=== PATIENT | female | born 1995 | race American Indian/Alaskan Native ===

== ENCOUNTER 2019-05-15 05:58 | Emergency (ER) | payer BC ==
[2019-05-15] MEDS ORDERED: MORPHINE 4 MG/1 ML INJ IV ONE ×2 (07:54→12:18)
[2019-05-15] MEDS ORDERED: ONDANSETRON 4 MG ODT TAB PO ONE (07:54)
[2019-05-15] MEDS ORDERED: SODIUM CHLORIDE 0.9% 1000 ML 1,000 ML IV ONE (08:00)
--- NOTE | 2019-05-15 08:01 | Emergency Department Report ---
ED Abdominal Pain HPI - General Chief Complaint: Urogenital-Female Stated Complaint: ABD PAIN,PAINFUL URINATION,HEMATURIA Time Seen by Provider: 05/15/19 07:27 Source: patient, EMS Mode of arrival: Stretcher Limitations: No Limitations - History of Present Illness Initial Comments: 23-year-old -[place] female patient without significant past medical history complains of lower abdominal pain yesterday. She rates her pain as 10/10 in severity and describes it as stabbing. She denies any dysuria or urinary frequency, however she admits to pressure with urination in her lower abdomen in a match area. Patient states her cycle ended 2 days ago. She denies any history of abdominal surgeries, flank pain, nausea/vomiting/diarrhea, hematochezia/melena. Pt states the pain started in her mid abdomen and has now moved to her lower abdomen and is worse on the right. She denies any fever/chills/sweats MD Complaint: abdominal pain -: Sudden Location: suprapubic Radiation: none - Related Data Previous Rx's Medication Instructions Recorded Last Taken Type Ibuprofen [Motrin] 800 mg PO Q8HR PRN #30 tablet 05/15/19 Unknown Rx Nitrofurantoin [place]/M-Cryst 100 mg PO Q12HR #14 capsule 05/15/19 Unknown Rx [Macrobid CAP] metroNIDAZOLE [Flagyl TAB] 500 mg PO Q12HR 7 Days #14 tab 05/15/19 Unknown Rx Allergies Allergy/AdvReac Type Severity Reaction Status Date / Time shellfish Allergy Itching Uncoded 05/15/19 06:16 ED Review of Systems ROS: Stated complaint: ABD PAIN,PAINFUL URINATION,HEMATURIA Other details as noted in HPI ED Past Medical Hx - Past Medical History Previous Medical History?: No - Surgical History Past Surgical History?: No - Social History Smoking Status: Never Smoker Substance Use Type: None - Medications Home Medications: Home Medications Medication Instructions Recorded Confirmed Last Taken Type Ibuprofen [Motrin] 800 mg PO Q8HR PRN #30 tablet 05/15/19 Unknown Rx Nitrofurantoin [place]/M-Cryst 100 mg PO Q12HR #14 capsule 05/15/19 Unknown Rx [Macrobid CAP] metroNIDAZOLE [Flagyl TAB] 500 mg PO Q12HR 7 Days #14 tab 05/15/19 Unknown Rx ED Physical Exam - General Limitations: No Limitations General appearance: alert, in no apparent distress - Head Head exam: Present: atraumatic, normocephalic - Eye Eye exam: Present: normal appearance - ENT ENT exam: Present: mucous membranes moist - Neck Neck exam: Present: normal inspection - Respiratory Respiratory exam: Present: normal lung sounds bilaterally. Absent: respiratory distress - Cardiovascular Cardiovascular Exam: Present: normal rhythm, tachycardia. Absent: systolic murmur, diastolic murmur, rubs, gallop - GI/Abdominal GI/Abdominal exam: Present: soft, tenderness, normal bowel sounds (suprapubic, worse in RLQ ). Absent: distended, guarding, rebound, rigid - Extremities Exam Extremities exam: Present: normal inspection. Absent: pedal edema, joint swelling - Back Exam Back exam: Present: normal inspection - Neurological Exam Neurological exam: Present: alert, oriented X3 - Psychiatric Psychiatric exam: Present: normal affect, normal mood - Skin Skin exam: Present: warm, dry, intact, normal color. Absent: rash ED Course Vital Signs 05/15/19 05/15/19 05/15/19 06:05 08:23 08:34 Temperature 99.9 F H Pulse Rate 111 H 85 Respiratory 18 16 18 Rate Blood Pressure 111/76 Blood Pressure 119/72 [Left] O2 Sat by Pulse 98 100 Oximetry 05/15/19 05/15/19 05/15/19 09:58 13:30 14:16 Temperature 98.4 F Pulse Rate 93 H 98 H Respiratory 18 16 17 Rate Blood Pressure Blood Pressure 121/77 107/64 [Left] O2 Sat by Pulse 99 98 Oximetry ED Medical Decision Making - Lab Data Result diagrams: 05/15/19 08:01 05/15/19 08:01 Lab Results 05/15/19 05/15/19 05/15/19 Range/Units 08:01 08:01 08:01 WBC 16.3 H (4.5-11.0) K/mm3 RBC 4.12 (3.65-5.03) M/mm3 Hgb 11.1 (10.1-14.3) gm/dl Hct 34.5 (30.3-42.9) % MCV 84 (79-97) fl MCH 27 L (28-32) pg MCHC 32 (30-34) % RDW 14.8 (13.2-15.2) % Plt Count 214 (140-440) K/mm3 Lymph % (Auto) 7.3 L (13.4-35.0) % [place] % (Auto) 6.7 (0.0-7.3) % Eos % (Auto) 0.0 (0.0-4.3) % Baso % (Auto) 0.1 (0.0-1.8) % Lymph # 1.2 (1.2-5.4) K/mm3 [place] # 1.1 H (0.0-0.8) K/mm3 Eos # 0.0 (0.0-0.4) K/mm3 Baso # 0.0 (0.0-0.1) K/mm3 Seg Neutrophils % 85.9 H (40.0-70.0) % Seg Neutrophils # 14.0 H (1.8-7.7) K/mm3 Sodium 134 L (137-145) mmol/L Potassium 3.4 L (3.6-5.0) mmol/L Chloride 98.4 (98-107) mmol/L Carbon Dioxide 20 L (22-30) mmol/L Anion Gap 19 mmol/L BUN 8 (7-17) mg/dL Creatinine 0.6 L (0.7-1.2) mg/dL Estimated GFR > 60 ml/min BUN/Creatinine Ratio 13 % Glucose 117 H (65-100) mg/dL Lactic Acid (0.7-2.0) mmol/L Calcium 9.1 (8.4-10.2) mg/dL Total Bilirubin 1.60 H (0.1-1.2) mg/dL AST 12 (5-40) units/L ALT 8 (7-56) units/L Alkaline Phosphatase 53 (35-129) units/L Total Protein 7.9 (6.3-8.2) g/dL Albumin 3.8 L (3.9-5) g/dL Albumin/Globulin Ratio 0.9 % Lipase 25 (13-60) units/L Urine Color (Yellow) Urine Turbidity (Clear) Urine pH (5.0-7.0) Ur Specific [place] (1.003-1.030) Urine Protein (Negative) mg/dL Urine Glucose (UA) (Negative) mg/dL Urine Ketones (Negative) mg/dL Urine Blood (Negative) Urine Nitrite (Negative) Urine Bilirubin (Negative) Urine Urobilinogen (<2.0) mg/dL Ur Leukocyte Esterase (Negative) Urine WBC (Auto) (0.0-6.0) /HPF Urine RBC (Auto) (0.0-6.0) /HPF U Epithel Cells (Auto) (0-13.0) /HPF Urine Bacteria (Auto) (Negative) /HPF Urine Mucus /HPF Urine HCG, Qual (Negative) 05/15/19 05/15/19 05/15/19 Range/Units 08:06 09:12 09:56 WBC (4.5-11.0) K/mm3 RBC (3.65-5.03) M/mm3 Hgb (10.1-14.3) gm/dl Hct (30.3-42.9) % MCV (79-97) fl MCH (28-32) pg MCHC (30-34) % RDW (13.2-15.2) % Plt Count (140-440) K/mm3 Lymph % (Auto) (13.4-35.0) % [place] % (Auto) (0.0-7.3) % Eos % (Auto) (0.0-4.3) % Baso % (Auto) (0.0-1.8) % Lymph # (1.2-5.4) K/mm3 [place] # (0.0-0.8) K/mm3 Eos # (0.0-0.4) K/mm3 Baso # (0.0-0.1) K/mm3 Seg Neutrophils % (40.0-70.0) % Seg Neutrophils # (1.8-7.7) K/mm3 Sodium (137-145) mmol/L Potassium (3.6-5.0) mmol/L Chloride (98-107) mmol/L Carbon Dioxide (22-30) mmol/L Anion Gap mmol/L BUN (7-17) mg/dL Creatinine (0.7-1.2) mg/dL Estimated GFR ml/min BUN/Creatinine Ratio % Glucose (65-100) mg/dL Lactic Acid 2.70 H* 1.50 (0.7-2.0) mmol/L Calcium (8.4-10.2) mg/dL Total Bilirubin (0.1-1.2) mg/dL AST (5-40) units/L ALT (7-56) units/L Alkaline Phosphatase (35-129) units/L Total Protein (6.3-8.2) g/dL Albumin (3.9-5) g/dL Albumin/Globulin Ratio % Lipase (13-60) units/L Urine Color Yellow (Yellow) Urine Turbidity Slightly-cloudy (Clear) Urine pH 6.0 (5.0-7.0) Ur Specific [place] 1.012 (1.003-1.030) Urine Protein 30 mg/dl (Negative) mg/dL Urine Glucose (UA) Neg (Negative) mg/dL Urine Ketones Tr (Negative) mg/dL Urine Blood Lg (Negative) Urine Nitrite Neg (Negative) Urine Bilirubin Neg (Negative) Urine Urobilinogen 4.0 (<2.0) mg/dL Ur Leukocyte Esterase Tr (Negative) Urine WBC (Auto) 14.0 H (0.0-6.0) /HPF Urine RBC (Auto) 9.0 (0.0-6.0) /HPF U Epithel Cells (Auto) 7.0 (0-13.0) /HPF Urine Bacteria (Auto) 1+ (Negative) /HPF Urine Mucus 3+ /HPF Urine HCG, Qual Negative (Negative) 05/15/19 Range/Units 12:49 WBC (4.5-11.0) K/mm3 RBC (3.65-5.03) M/mm3 Hgb (10.1-14.3) gm/dl Hct (30.3-42.9) % MCV (79-97) fl MCH (28-32) pg MCHC (30-34) % RDW (13.2-15.2) % Plt Count (140-440) K/mm3 Lymph % (Auto) (13.4-35.0) % [place] % (Auto) (0.0-7.3) % Eos % (Auto) (0.0-4.3) % Baso % (Auto) (0.0-1.8) % Lymph # (1.2-5.4) K/mm3 [place] # (0.0-0.8) K/mm3 Eos # (0.0-0.4) K/mm3 Baso # (0.0-0.1) K/mm3 Seg Neutrophils % (40.0-70.0) % Seg Neutrophils # (1.8-7.7) K/mm3 Sodium (137-145) mmol/L Potassium (3.6-5.0) mmol/L Chloride (98-107) mmol/L Carbon Dioxide (22-30) mmol/L Anion Gap mmol/L BUN (7-17) mg/dL Creatinine (0.7-1.2) mg/dL Estimated GFR ml/min BUN/Creatinine Ratio % Glucose (65-100) mg/dL Lactic Acid 1.40 (0.7-2.0) mmol/L Calcium (8.4-10.2) mg/dL Total Bilirubin (0.1-1.2) mg/dL AST (5-40) units/L ALT (7-56) units/L Alkaline Phosphatase (35-129) units/L Total Protein (6.3-8.2) g/dL Albumin (3.9-5) g/dL Albumin/Globulin Ratio % Lipase (13-60) units/L Urine Color (Yellow) Urine Turbidity (Clear) Urine pH (5.0-7.0) Ur Specific [place] (1.003-1.030) Urine Protein (Negative) mg/dL Urine Glucose (UA) (Negative) mg/dL Urine Ketones (Negative) mg/dL Urine Blood (Negative) Urine Nitrite (Negative) Urine Bilirubin (Negative) Urine Urobilinogen (<2.0) mg/dL Ur Leukocyte Esterase (Negative) Urine WBC (Auto) (0.0-6.0) /HPF Urine RBC (Auto) (0.0-6.0) /HPF U Epithel Cells (Auto) (0-13.0) /HPF Urine Bacteria (Auto) (Negative) /HPF Urine Mucus /HPF Urine HCG, Qual (Negative) - Radiology Data Radiology results: report reviewed CT ABDOMEN AND PELVIS WITH CONTRAST HISTORY: Lower abdominal pain. COMPARISON: None TECHNIQUE: Routine abdominal and pelvic CT exam performed following intravenous contrast administration.. 100 cc of Omnipaque 300 was injected intravenously without incident and consent was obtained prior to the administration of the contrast. All CT scans at this location are performed using CT dose reduction for ALARA by means of automated exposure control. FINDINGS: CT ABDOMEN: Lung Bases: Clear. Liver: No significant abnormality. Biliary: No significant abnormality. Normal gallbladder and bile ducts. Spleen: No significant abnormality. Unenlarged. Pancreas: No significant abnormality. Adrenals: No significant abnormality. Kidneys: No significant abnormality. Lymphatics: No lymphadenopathy. Vasculature: No significant abnormality. Bowel/Peritoneum: No significant abnormality. No free air. No free fluid. Normal appendix. The appendix is retrocecal. There is a small amount inflammatory change in the paracolic gutter. CT PELVIC: : Normal uterus and urinary bladder. The ovaries are enlarged and multicystic. A dominant cyst in the right ovary measures 5.1 cm and a dominant cyst in the left ovary measures 4.5 cm. The ovaries are contiguous in the midline and there is mild inflammatory stranding of the fat adjacent to the ovaries. A 3.3 cm fluid collection may be separate the both ovaries in the midline. There is no air within it. Lymphatics: No lymphadenopathy. Osseous Structures: No aggressive appearing osseous lesions. Additional Findings: None IMPRESSION: 1. Multicystic ovaries and inflammatory changes in the pelvis are consistent with pelvic inflammatory disease and bilateral TOAs. 2. A 3 cm fluid collection with a well-developed wall in the pelvis may be separate from the ovaries is suspicious for separate abscess. No acute appendicitis. 4. Normal upper abdomen. - Medical Decision Making 23-year-old female patient presents with complaints of abdominal pain since yesterday. Patient noted to have low-grade fever at 99.9F and tachycardic at 111. WBCs at 16.3. Initial Lactic acid at 2.7---1.[address] abdomen shows 1. Multicystic ovaries and inflammatory changes in the pelvis are consistent with pelvicinflammatory disease and bilateral TOAs. 2. A 3 cm fluid collection with a well-developed wall in the pelvis may be separate from the ovaries is suspicious for separate abscess. Discussed pt with LAUREANO Elias, who also evaluated pt in the ED-states pt okay for d/c home and f/u outpt with OBGYN. Vitals are now wnl. Discussed strict return precautions in detail with patient who states understanding Critical care attestation.: If time is entered above; I have spent that time in minutes in the direct care of this critically ill patient, excluding procedure time. ED Disposition Clinical Impression: PID (acute pelvic inflammatory disease) Ovarian cyst Qualifiers: Laterality: bilateral Qualified Code(s): N83.201 - Unspecified ovarian cyst, right side Disposition: TO HOME OR SELFCARE Is pt being admited?: No Condition: Stable Instructions: Pelvic Inflammatory Disease (ED) Prescriptions: metroNIDAZOLE [Flagyl TAB] 500 mg PO Q12HR 7 Days #14 tab Nitrofurantoin [place]/M-Cryst [Macrobid CAP] 100 mg PO Q12HR #14 capsule Ibuprofen [Motrin] 800 mg PO Q8HR PRN #30 tablet PRN Reason: Pain, Moderate (4-6) Referrals: PRIMARY CARE, [Primary Care Provider] - 3-5 Days
[2019-05-15] MEDS ORDERED: ONDANSETRON 4 MG/2 ML INJ IV ONE (08:12)
[2019-05-15] MEDS ORDERED: ONDANSETRON 4 MG/2 ML INJ ONE (08:14)
[2019-05-15 08:37] LABS: Basophils % (Auto) 0.1 % (0.0-1.8); Hematocrit 34.5 % (30.3-42.9); Hemoglobin 11.1 gm/dl (10.1-14.3); Lymphocytes # (Auto) 1.2 K/mm3 (1.2-5.4); Lymphocytes % (Auto) 7.3 % (13.4-35.0); Mean Corpuscular HGB Conc 32 % (30-34); Mean Corpuscular Volume 84 fl (79-97); Monocytes # (Auto) 1.1 K/mm3 (0.0-0.8); Monocytes % (Auto) 6.7 % (0.0-7.3); Platelet Count 214 K/mm3 (140-440); Red Blood Count 4.12 M/mm3 (3.65-5.03); Red Cell Distribution Width 14.8 % (13.2-15.2)
[2019-05-15 08:43] LABS: Bacteria,Urine 1+ /HPF (Negative); Bilirubin,Urine NEG (Negative); Blood,Urine LG (Negative); Color,Urine Yellow (Yellow); HCG Qualitative,Urine Negative (Negative); Mucus,Urine 3+ /HPF
[2019-05-15 09:01] LABS: Alanine Aminotransferase 8 units/L (7-56); Albumin 3.8 g/dL (3.9-5); BUN/Creatinine Ratio 13; Blood Urea Nitrogen 8 mg/dL (7-17); Calcium 9.1 mg/dL (8.4-10.2); Hemolysis Index 2
[2019-05-15] MEDS ORDERED: SODIUM CHLORIDE 0.9% 1000 ML IV SOLN IV ONE (09:38)
--- NOTE | 2019-05-15 10:32 | Cat Scan Report ---
CT ABDOMEN AND PELVIS WITH CONTRAST HISTORY: Lower abdominal pain. COMPARISON: None TECHNIQUE: Routine abdominal and pelvic CT exam performed following intravenous contrast administrat ion.. 100 cc of Omnipaque 300 was injected intravenously without incident and consent was obtained pr ior to the administration of the contrast. All CT scans at this location are performed using CT dose reduction for ALARA by means of automated exposure control. FINDINGS: CT ABDOMEN: Lung Bases: Clear. Liver: No significant abnormality. Biliary: No significant abnormality. Normal gallbladder and bile ducts. Spleen: No significant abnormality. Unenlarged. Pancreas: No significant abnormality. Adrenals: No significant abnormality. Kidneys: No significant abnormality. Lymphatics: No lymphadenopathy. Vasculature: No significant abnormality. Bowel/Peritoneum: No significant abnormality. No free air. No free fluid. Normal appendix. The append ix is retrocecal. There is a small amount inflammatory change in the paracolic gutter. CT PELVIC: : Normal uterus and urinary bladder. The ovaries are enlarged and multicystic. A dominant cyst in t he right ovary measures 5.1 cm and a dominant cyst in the left ovary measures 4.5 cm. The ovaries are contiguous in the midline and there is mild inflammatory stranding of the fat adjacent to the ovarie s. A 3.3 cm fluid collection may be separate the both ovaries in the midline. There is no air within it. Lymphatics: No lymphadenopathy. Osseous Structures: No aggressive appearing osseous lesions. Additional Findings: None IMPRESSION: 1. Multicystic ovaries and inflammatory changes in the pelvis are consistent with pelvic inflammatory disease and bilateral TOAs. 2. A 3 cm fluid collection with a well-developed wall in the pelvis may be separate from the ovaries is suspicious for separate abscess. No acute appendicitis. 4. Normal upper abdomen. Signer Name: Valentín Patterson MD Signed: 05/15/2019 10:28 AM Workstation Name: [id number]
[2019-05-15] MEDS ORDERED: cefTRIAXone/NS 1 GM/50 ML 1 GM/50 ML BAG IV ONE (12:17)
[2019-05-15] MEDS ORDERED: DOXYCYCLINE HYCLATE 100 MG in SODIUM CHLORIDE 0.9% 250ML 250 ML IV SCH (12:30)
--- NOTE | 2019-05-15 13:19 | Consultation ---
History of Present Illness - Reason for Consult Consult date: 05/15/19 Lower ABD pain Requesting physician: ELOY TURCIOS - History of Present Illness 23 y/o presents to ED with c/o lower ABD pain, occassional vaginal spotting, and nausea that started yesterday that intensifies with movement. States she has a [facility] appt scheduled for 05/17/19 for lower ABD pain on both sides. Took OTC Motrin and warm bath that helped relieve discomfort. Has hx of cyclic lower right and left ABD pain that occurs before or after cycle. Pt also reports urethra pressure with urination that started the same time as the lower ABD pain. LMP 05/07/19. Reports hx of irregular monthly menstrual cycles lasting 5 days with heavy bleeding. Pt is not currently sexually active with last interco urse encounter 2 yrs ago. Reports last pap was at 15 y.o. prior to initiation of OCPs for irregular cycle. Does not use any primary form of contraception. Denies fever, chills, N/V, dysuria, foul-smelling urine, flank pain, vaginal discharge, odor, burning, itching, redness, swelling, and any STD hx. Past History Past Medical History: No medical history Past Surgical History: No surgical history Social history: single, lives with family Family history: no significant family history Medications and Allergies Allergies Allergy/AdvReac Type Severity Reaction Status Date / Time shellfish Allergy Itching Uncoded 05/15/19 06:16 Home Medications Medication Instructions Recorded Confirmed Last Taken Type Ibuprofen [Motrin] 800 mg PO Q8HR PRN #30 tablet 05/15/19 Unknown Rx Nitrofurantoin [place]/M-Cryst 100 mg PO Q12HR #14 capsule 05/15/19 Unknown Rx [Macrobid CAP] metroNIDAZOLE [Flagyl TAB] 500 mg PO Q12HR 7 Days #14 tab 05/15/19 Unknown Rx Active Meds: Active Medications Acetaminophen (Tylenol) 650 mg PO ONCE ONE Stop: 05/15/19 14:01 Azithromycin (Zithromax) 1,000 mg PO ONCE ONE Stop: 05/15/19 14:01 Doxycycline Hyclate 100 mg/ (Sodium Chloride) 250 mls @ 250 mls/hr IV Q12HR [facility]; Protocol Last Admin: 05/15/19 13:01 Dose: 250 mls/hr Documented by: Review of Systems Breasts: deferred Gastrointestinal: abdominal pain Genitourinary Female: pelvic pain Exam - Constitutional Vitals: Temp Pulse Resp BP Pulse Ox 98.4 F 93 H 18 121/77 99 05/15/19 09:58 05/15/19 09:58 05/15/19 09:58 05/15/19 09:58 05/15/19 09:58 General appearance: Present: no acute distress, well-nourished - EENT Eyes: Present: PERRL ENT: hearing intact, clear oral mucosa - Neck Neck: Present: supple, normal ROM - Respiratory Respiratory effort: normal Respiratory: bilateral: CTA - Cardiovascular Heart Sounds: Present: S1 & S2. Absent: rub, click - Extremities Extremities: pulses symmetrical, No edema Peripheral Pulses: within normal limits - Abdominal General gastrointestinal: Present: soft, tender (lower ABD tenderness elicited with light palpation), non-distended, normal bowel sounds Female genitourinary: Present: normal, other (CMT present) - Integumentary Integumentary: Present: clear, warm, dry - Musculoskeletal Musculoskeletal: gait normal, strength equal bilaterally - Psychiatric Psychiatric: appropriate mood/affect, intact judgment & insight - Neurologic Neurologic: CNII-XII intact, moves all extremities Results - Labs CBC & Chem 7: 05/15/19 08:01 05/15/19 08:01 Labs: Abnormal lab results 05/15/19 05/15/19 05/15/19 Range/Units 08:01 08:01 08:06 WBC 16.3 H (4.5-11.0) K/mm3 MCH 27 L (28-32) pg Lymph % (Auto) 7.3 L (13.4-35.0) % [place] # 1.1 H (0.0-0.8) K/mm3 Seg Neutrophils % 85.9 H (40.0-70.0) % Seg Neutrophils # 14.0 H (1.8-7.7) K/mm3 Sodium 134 L (137-145) mmol/L Potassium 3.4 L (3.6-5.0) mmol/L Carbon Dioxide 20 L (22-30) mmol/L Creatinine 0.6 L (0.7-1.2) mg/dL Glucose 117 H (65-100) mg/dL Lactic Acid (0.7-2.0) mmol/L Total Bilirubin 1.60 H (0.1-1.2) mg/dL Albumin 3.8 L (3.9-5) g/dL Urine WBC (Auto) 14.0 H (0.0-6.0) /HPF 05/15/19 Range/Units 09:12 WBC (4.5-11.0) K/mm3 MCH (28-32) pg Lymph % (Auto) (13.4-35.0) % [place] # (0.0-0.8) K/mm3 Seg Neutrophils % (40.0-70.0) % Seg Neutrophils # (1.8-7.7) K/mm3 Sodium (137-145) mmol/L Potassium (3.6-5.0) mmol/L Carbon Dioxide (22-30) mmol/L Creatinine (0.7-1.2) mg/dL Glucose (65-100) mg/dL Lactic Acid 2.70 H* (0.7-2.0) mmol/L Total Bilirubin (0.1-1.2) mg/dL Albumin (3.9-5) g/dL Urine WBC (Auto) (0.0-6.0) /HPF - Imaging and Cardiology CT scan - abdomen: report reviewed Assessment and Plan - Patient Problems (1) Pelvic inflammatory disease Current Visit: Yes Status: Acute Plan to address problem: Emprical tx for PID initiated. G/C cultures sent. Consulted with Dr. Tavarez pt to be D/C pt home with Motrin and Flagyl and keep schedule [facility] appt on Wed. (2) Abdominal pain Current Visit: Yes Status: Acute Plan to address problem: Rx home for Motrin 800 mg TID prn for pain. Pt to f/u with previous [facility] appt. on 05/17/19. (3) Ovarian cyst Current Visit: Yes Status: Acute Plan to address problem: Consulted with Dr. Noguera and plan for pt to f/u with previously scheduled [facility] appointment on Wed. (4) Dysuria Current Visit: Yes Status: Acute Plan to address problem: UC sent. Consulted with Dr. Noguera and empicial tx not suggested at this time. (5) Bacterial vaginosis Current Visit: Yes Status: Acute Plan to address problem: Rx home for Flagyl.
[2019-05-15] MEDS ORDERED: AZITHROMYCIN 250 MG TAB PO ONE (14:00)
[2019-05-15] MEDS ORDERED: ACETAMINOPHEN 325 MG TAB PO ONE (14:00)
[2019-05-15 14:17] VITALS: BP 107/64
== END 2019-05-15 14:31 | disposition home or self-care (01) ==
LOC: ED 05:58
DX: N73.0 Acute parametritis and pelvic cellulitis (principal); N83.201 Unspecified ovarian cyst, right side; Z79.899 Other long term (current) drug therapy; Z91.013 Allergy to seafood
CPT/HCPCS: 36415; 74177; 80053; 81001; 81025; 82140; 83690; 85025; 87040; 87086; 87210; 87591; 96361; 96365; 96367; 96375; 96376; 99285; J0696; J2270; J2405; J7030; J7050; Q9967